=== PATIENT | female | born 1995 | race African-American/Black ===

== ENCOUNTER 2017-09-22 02:42 | Emergency (ER) | payer BC, MEDICAID ==
[~2017-09-22] VITALS: Ht 160 cm; Wt 123.5 kg
[~2017-09-22 02:42] MED LIST: PREN-88 PO
[2017-09-22] MEDS ORDERED: ONDANSETRON HCL 4MG/2ML VIAL IV STA (07:13)
[2017-09-22] MEDS ORDERED: SODIUM CHLORIDE 0.9% 1,000 ML IV ONE (07:13)
[2017-09-22 07:52] LABS: BASOPHILS % 1.2 % (0.0-2.0); HEMATOCRIT. 40.5 % (36.0-48.0); HEMOGLOBIN. 13.6 g/dL (12.0-16.0); LYMPHOCYTES % 32.2 % (20.0-50.0); MEAN CORPUSCULAR HEMOGLOBIN 29.2 pg (28.0-32.0); MEAN CORPUSCULAR VOLUME 86.7 fL (81.0-99.0); MEAN PLATELET VOLUME 8.6 fl (7.4-10.4); MONOCYTES % 6.3 % (2.0-8.0); NEUTROPHILS % 59.3 % (40.0-76.0); PLATELET 269 x1000/uL (130-400); RED BLOOD CELL COUNT 4.67 mill/uL (4.2-5.4); RED CELL DISTRIBUTION WIDTH 12.6 % (11.6-14.6)
[2017-09-22 07:57] LABS: CLARITY URINE CLEAR (CLEAR); COLOR URINE YELLOW (YELLOW); KETONES URINE NEGATIVE (NEGATIVE); LEUKOCYTE ESTERASE URINE 1+ (NEGATIVE); NITRITE URINE NEGATIVE (NEGATIVE); OCCULT BLOOD URINE NEGATIVE (NEGATIVE); PROTEIN URINE NEGATIVE (NEGATIVE); SPECIFIC GRAVITY URINE 1.016 (1.005-1.030); UROBILINOGEN URINE 0.2 E.U./dL (0.2-1.0)
[2017-09-22 07:59] LABS: CHLORIDE 105 mEq/L (98-107)
[2017-09-22 08:00] LABS: PROTHROMBIN TIME 10.8 sec (9.4-11.6)
[2017-09-22 08:08] LABS: CARBON DIOXIDE 27 mEq/L (21-32)
[2017-09-22 10:25] VITALS: BP 109/67
== END 2017-09-22 10:30 | disposition home or self-care (01) ==
LOC: ER 03:21
DX: K80.20 Calculus of gallbladder without cholecystitis without obstruction (principal); N39.0 Urinary tract infection, site not specified; K76.0 Fatty (change of) liver, not elsewhere classified; E66.9 Obesity, unspecified; Z68.42 Body mass index [BMI] 45.0-49.9, adult
CPT/HCPCS: 36415; 76705; 80053; 81001; 81025; 83690; 85025; 85610; 96361; 96374; 99285; J2405; J7030; Z7610